=== PATIENT | female | born 1985 | race Hispanic/Latino ===

== ENCOUNTER 2019-04-14 11:07 | Emergency (ER) | payer SELFPAY ==
[2019-04-14] MEDS ORDERED: Morphine 4 MG/ML VIAL ONE ×3 (12:52→16:59)
[2019-04-14] MEDS ORDERED: Ketorolac Tromethamine 60 MG/2 ML VIAL ONE (14:56)
[2019-04-14] MEDS ORDERED: Ketorolac Tromethamine 30 MG/ML VIAL ONE ×2 (14:57→16:59)
[2019-04-14] MEDS ORDERED: Ondansetron PF 4 MG/2 ML Vial ONE (17:20)
[2019-04-14] MEDS ORDERED: Fentanyl 100 MCG/2 ML VIAL ONE (19:39)
--- NOTE | 2019-04-14 21:02 | CON ---
DATE OF CONSULTATION: 04/14/2019 REQUESTING PHYSICIAN: Dr. Rider. CONSULTING PHYSICIAN: Red Ibrahim MD REASON FOR CONSULTATION: Pelvic masses. HISTORY OF PRESENT ILLNESS: Ms. Villegas is a 33-year-old G4, P4, last menstrual period 03/21/2019, who presents complaining of diffuse lower abdominal pain with vomiting over the last 24 hours. She denies irregular bleeding. She states her last Pap smear was at [facility] in 2017 and states her exam was normal at that time. PAST OBSTETRICAL HISTORY: Includes four vaginal deliveries, reportedly all uncomplicated. PAST MEDICAL HISTORY: Asthma. PAST SURGICAL HISTORY: Tubal ligation. CURRENT MEDICATIONS: Occasional rescue inhaler. ALLERGIES: NO KNOWN ALLERGIES. SOCIAL HISTORY: She smokes occasionally and she drinks socially. She denies drug use. FAMILY HISTORY: Denies pelvic malignancy. REVIEW OF SYSTEMS: Positive for nausea and abdominal pain. Negative for abnormal uterine bleeding. PHYSICAL EXAMINATION: VITAL SIGNS: In the emergency room, her vital signs are stable. She is afebrile. GENERAL: She is pleasant and in no acute distress. ABDOMEN: Soft. There is no guarding or rebound. She is obese. PELVIC: Speculum exam shows minimal discharge. The cervix is grossly without lesions. The bimanual examination is noncontributory. LABORATORY DATA: White count 14.4, hemoglobin and hematocrit 14.1 and 43.4 respectively, platelets 292,000. Sodium 135, potassium 3.7, creatinine 0.71. AST and ALT are 17 and 18 respectively, alkaline phosphatase 73. On urinalysis, her specific gravity is 1.030 with trace ketones, trace blood. Her microscopic is unremarkable. Her serum test is negative. CT scan of the abdomen and pelvis shows gallstones. CT of the pelvis shows a right ovarian cyst 10.1 x 8.3 cm. There is also a mass anterior to the uterus that is 14 cm in sagittal length and is complex with septations. ASSESSMENT: Pelvic mass. PLAN: In view of the patient's need for a [employer] Oncology evaluation, I would recommend a transfer/evaluation at a tertiary care facility that has that capability. Job ID: [id number] [id number]
[2019-04-16 00:03] LABS: Chlamydia by PCR Not Detected (NotDetected); GC by PCR Not Detected (NotDetected)
== END 2019-04-14 20:21 | disposition short-term general hospital (02) ==
LOC: ERS 11:07
DX: N83.209 Unspecified ovarian cyst, unspecified side (principal); R19.00 Intra-abdominal and pelvic swelling, mass and lump, unspecified site; J45.909 Unspecified asthma, uncomplicated; Z79.51 Long term (current) use of inhaled steroids
CPT/HCPCS: 87480; 87491; 87510; 87591; 87660; 96361; 96374; 96375; 96376; J1885; J2270; J2405; J3010